=== PATIENT | female | born 1995 | race African-American/Black ===

== ENCOUNTER 2021-03-07 14:22 | Emergency (ER) | payer SELFPAY ==
[2021-03-08 17:13] LABS: SARS-CoV-2 PCR by NAA Not Detected (NotDetected)
== END 2021-03-07 19:11 | disposition home or self-care (01) ==
LOC: CSHERS 14:22
DX: R07.2 Precordial pain (principal); B34.9 Viral infection, unspecified; Z20.822 Contact with and (suspected) exposure to COVID-19; D64.9 Anemia, unspecified; F17.210 Nicotine dependence, cigarettes, uncomplicated
CPT/HCPCS: 71045; 93005; U0003; U0005